=== PATIENT | male | born 1995 | race Caucasian/White ===

== ENCOUNTER 2016-06-29 02:07 | Emergency (ER) | payer OTHER ==
[~2016-06-29] VITALS: Ht 177.8 cm; Wt 90.7 kg
[2016-06-29 02:10] VITALS: BP_SYST 142
[2016-06-29 02:58] VITALS: BP_SYST 130
== END 2016-06-29 02:58 ==
LOC: SED 02:07
DX: Z02.89 Encounter for other administrative examinations (principal)
CPT/HCPCS: 99283